=== PATIENT | female | born 1935 | race Caucasian/White ===

== ENCOUNTER 2016-12-18 14:06 | Emergency (ER) | payer MEDICARE, MEDICAID ==
[2016-12-18 14:06] VITALS: BMI 23.0
[2016-12-18 14:21] VITALS: TEMP 98.1
[2016-12-18] MEDS ORDERED: Morphine 2 mg/ml ISec IVP STA (14:46)
[2016-12-18 14:54] LABS: ADD MANUAL DIFF? NO
[2016-12-18 14:58] LABS: BASO # 0.02 K/mm3 (0.0-2.0); BASO % 0.2 % (0.0-3.0); EOS # 0.1 (0.0-0.7); EOS % 0.8 % (1.5-5.0); GRAN # 9.41 (1.4-6.5); GRAN % 79.5 % (50.0-68.0); HEMATOCRIT 35.9 % (36.0-48.0); LYMPH # 1.6 (1.2-3.4); LYMPH % 13.3 % (22.0-35.0); MEAN CELL VOLUME 89.5 fL (80.0-105.0); MEAN CORPUSCULAR HEMOGLOBIN 30.7 pg (25.0-35.0); MEAN CORPUSCULAR HGB CONC 34.3 g/dl (31.0-37.0); MEAN PLATELET VOLUME 9.7 fl (7.0-11.0); MONO # 0.7 (0.1-0.6); MONO % 6.2 % (1.0-6.0); PLATELET COUNT 306 10^3/uL (120.0-450.0); RED CELL DISTRIBUTION WIDTH 12.7 % (11.5-14.5); WHITE BLOOD COUNT 11.8 10^3/ul (4.5-11.0)
[2016-12-18 15:10] LABS: ALKALINE PHOSPHATASE 145 U/L (38-133); ALT/SGPT 35 U/L (7-56); AST/SGOT 40 U/L (15-39); BILIRUBIN,TOTAL 0.7 mg/dL (0.2-1.3); BLOOD UREA NITROGEN 15 mg/dL (7-21); CALCIUM 9.2 mg/dL (8.4-10.5); CARBON DIOXIDE 29 mmol/L (21-33); CHLORIDE 98 mmol/L (98-107); GFR AFRICAN-AMERICAN 48; GLUCOSE,RANDOM 202 mg/dL (70-110); MAGNESIUM 1.9 mg/dL (1.7-2.2); PHOSPHOROUS 3.8 mg/dL (2.5-4.5); SODIUM 137 mmol/L (132-148); TOTAL PROTEIN 7.5 g/dL (5.8-8.3)
--- NOTE | 2016-12-18 15:12 | ED PDOC ---
Arrival/HPI - General Chief Complaint: Dizziness/Lightheaded Time Seen by Provider: 12/18/16 14:27 Historian: Patient - History of Present Illness Narrative History of Present Illness (Text): 12/18/16 4:29 A 81 year old female, whose past medical history includes hypertension, hyperlipidemia, chronic cervical spine pain, and peripheral vascular disease, who presents to the emergency department with multiple complaints. Patient complains of lower back pain. She states the lower back pain is new and started yesterday morning. She notes the pain radiates down to the bilateral lower extremities to the tip of the feet. She notes a tingling sensation to the feet, but denies any numbness, change in ability to walk, or saddle anesthesia. Patient also complains of chronic cervical spine pain. She states she took Tramadol for the pain this morning. Patient also notes since this morning she has been experiencing lightheadedness and getting this aura tingling sensation in the mouth. She notes for the past week she has had a sore throat and intermittent congestion. Patient denies any fever, shortness of breath, chest pain, change in PO intake, rectal bleeding or other complaints at this time. PMD: Dr. Bob Time/Duration: Other (24 hours; 8-10 hours; 1 week; chronic) Symptom Onset: Other Symptom Course: Unchanged, Intermittent Quality: Other Activities at Onset: Rest Context: Home Past Medical History - Provider Review Nursing Documentation Reviewed: Yes - Infectious Disease Hx of Infectious Diseases: None - Tetanus Immunization Tetanus Immunization: Unknown - Reproductive Menopause: Yes - Cardiac Hx Hypertension: Yes - Pulmonary Hx Respiratory Disorders: No Hx Chronic Obstructive Pulmonary Disease (COPD): No - Neurological Hx Transient Ischemic Attacks (TIA): No - HEENT Hx HEENT Disorder: Yes Hx Blind: No Hx Cataracts: Yes (Bilateral cataract removal) Hx Deafness: No Hx Difficulty Chewing: No Hx Epistaxis: No Hx Glaucoma: No Hx Macular Degeneration: No - Renal Hx Renal Disorder: No Hx Renal Failure: No - Endocrine/Metabolic Hx Diabetes Mellitus Type 1: No Hx Diabetes Mellitus Type 2: Yes - Hematological/Oncological Hx Blood Disorders: No Hx AIDS: No Hx Anemia: No Hx Cancer: No Hx Chemotherapy: No Hx Cirrhosis: No Hx Hemophilia: No Hx Hepatitis A: No Hx Hepatitis B: No Hx Hepatitis C: No Hx Metastasis: No Hx Shingles: No Hx Sickle Cell Disease: No Hx Unexplained Bleeding: No - Integumentary Hx Dermatological Disorder: No Hx Basal Cell Carcinoma: No Hx Eczema: No Hx Melanoma: No Hx Psoriasis: No Hx Squamous Cell Carcinoma: No - Musculoskeletal/Rheumatological Hx Falls: No - Gastrointestinal Hx Gastrointestinal Disorders: Yes Hx Colostomy: No Hx Crohn's Disease: No Hx Diverticulitis: No Hx Gall Bladder Disease: No Hx Gastroesophageal Reflux: Yes Hx Gastrointestinal Ulcer: No Hx Ileostomy: No Hx Liver Failure: No Hx Pancreatitis: No HX Swallowing Problems: No - Genitourinary/Gynecological Hx Genitourinary Disorders: Yes (hysterectomy) Hx Hematuria: No Hx Incontinence: No Hx Prostate Problems: No Hx Sexually Transmitted Diseases: No Hx Urinary Tract Infection: No - Psychiatric Hx Psychophysiologic Disorder: No Hx Anxiety: No Hx Bipolar Disorder: No Hx Depression: No Hx Emotional Abuse: No Hx Hallucinations: No Hx Panic Disorder: No Hx Post Traumatic Stress Disorder: No Hx Psychosis: No Hx Physical Abuse: No Hx Schizophrenia: No Hx Sexual Abuse: No Hx Substance Use: No - Surgical History Hx Amputation: No Hx Appendectomy: No Hx Cardiac Catheterization: No Hx Cholecystectomy: No Hx Coronary Stent: No Hx Gastric Bypass Surgery: No Hx Hysterectomy: Yes Hx Joint Replacement: No Hx Kidney Transplant: No Hx Liver Transplant: No Hx Mastectomy: No Hx Musculoskeletal Surgery: Yes Hx Open Heart Surgery: No Hx Orthopedic Surgery: Yes Hx Splenectomy: No Hx Valve Replacement: No - Anesthesia Hx Anesthesia: Yes Hx Anesthesia Reactions: No Hx Malignant Hyperthermia: No - Suicidal Assessment Feels Threatened In Home Enviroment: No Family/Social History - Physician Review Nursing Documentation Reviewed: Yes Family/Social History: Unknown Family HX Smoking Status: Never Smoked Hx Alcohol Use: No Hx Substance Use: No Hx Substance Use Treatment: No Allergies/Home Meds Allergies/Adverse Reactions: Allergies No Known Allergies Allergy (Verified 05/19/16 11:30) Home Medications: Home Meds Medication Instructions Recorded Confirmed Insulin Glargine, Recombina 20 units SC ACB 09/30/13 12/18/16 [Lantus] Insulin Lispro [humALOG] 10 units SC TID 09/30/13 12/18/16 Aspirin [Ecotrin] 325 mg PO DAILY 12/18/16 12/18/16 Carvedilol [Coreg] 3.125 mg PO BID 12/18/16 12/18/16 Insulin Glargine, Recombina 12 unit SC HS 12/18/16 12/18/16 [Lantus] MetFORMIN [glucOPHAGE] 0 mg PO 12/18/16 Pantoprazole Sodium [Protonix] 40 mg PO DAILY 12/18/16 12/18/16 Simvastatin [Zocor] 20 mg PO DAILY 12/18/16 12/18/16 amLODIPine [Norvasc] 5 mg PO DAILY 12/18/16 12/18/16 traMADol [Ultram] 50 mg PO TID 12/18/16 12/18/16 Review of Systems - Physician Review All systems were reviewed & negative as marked: Yes - Review of Systems Constitutional: absent: Fevers ENT: Sore Throat, Sinus Congestion Respiratory: absent: SOB Cardiovascular: absent: Chest Pain Gastrointestinal: absent: Appetite Changes, Hematochezia Musculoskeletal: Back Pain (radiating down the bilateral lower extremities), Neck Pain Neurological: Other (tingling sensation to the feet and in mouth; lightheadedness; no numbness; no gait change; no saddle anesthesia) Physical Exam Vital Signs Reviewed: Yes Vital Signs Temp Pulse Resp BP Pulse Ox 12/18/16 17:36 72 18 133/60 97 12/18/16 15:44 74 20 134/63 97 12/18/16 14:18 98.1 F 72 18 154/58 H 98 Temperature: Afebrile Blood Pressure: Hypertensive Pulse: Regular Respiratory Rate: Normal Appearance: Positive for: Well-Appearing, Non-Toxic, Comfortable Pain Distress: None Mental Status: Positive for: Alert and Oriented X 3 - Systems Exam Head: Present: Atraumatic, Normocephalic Pupils: Present: PERRL Extroacular Muscles: Present: EOMI Conjunctiva: Present: Normal Mouth: Present: Moist Mucous Membranes Neck: Present: Normal Range of Motion, Paraspinal Tenderness Respiratory/Chest: Present: Clear to Auscultation, Good Air Exchange. No: Respiratory Distress, Accessory Muscle Use Cardiovascular: Present: Regular Rate and Rhythm, Normal S1, S2. No: Murmurs Abdomen: Present: Normal Bowel Sounds. No: Tenderness, Distention, Peritoneal Signs Back: Present: Paraspinal Tenderness, Other (full range of motion). No: Pain with Leg Raise Upper Extremity: Present: Normal Inspection. No: Cyanosis, Edema Lower Extremity: Present: Normal Inspection, NORMAL PULSES, Neurovascularly Intact. No: Edema, CALF TENDERNESS Neurological: Present: GCS=15, CN II-XII Intact, Speech Normal, Motor Func Grossly Intact, Normal Sensory Function Skin: Present: Warm, Dry, Normal Color. No: Rashes Psychiatric: Present: Alert, Oriented x 3, Normal Insight, Normal Concentration Medical Decision Making ED Course and Treatment: 12/18/16 14:29 Impression: A 81 year old female with chronic neck pain, new onset back pain, lightheadedness, sore throat and congestion. Differential Diagnosis include but are not limited to: spinal stenosis vs. herniated disc vs. back spasm vs. URI vs. Pneumonia vs. dehydration vs. electrolyte imbalance vs. ACS Plan: -- EKG -- Cervical Spine CT -- Head CT -- Lumbar Spine CT -- Chest X-ray -- Labs -- Urinalysis -- Morphine -- Reassess and disposition Prior Visits: Notes and results from previous visits were reviewed. The patient last presented to the emergency department on 06/21/16 for evaluation of intermittent chest pressure. Progress Notes: EKG: Ordered, reviewed, and independently interpreted the EKG. Rate : 71 BPM Rhythm : NSR Interpretation : PAC's otherwise normal 12/18/16 15:[address]: Creator : Kristian Flanagan MD COMPARISON: None available. FINDINGS: HEMORRHAGE: No intracranial hemorrhage. BRAIN: No mass effect or edema. Mild diffuse age-appropriate cerebral atrophy. 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 Mild chronic periventricular white matter ischemic change. VENTRICLES: Unremarkable. No hydrocephalus. CALVARIUM: Unremarkable. PARANASAL SINUSES: Unremarkable as visualized. No significant inflammatory changes. MASTOID AIR CELLS: Nonspecific sclerosis of right mastoid air cells. No evidence of mastoiditis. OTHER FINDINGS: None. IMPRESSION: No intracranial mass, hemorrhage or evidence of acute infarct. Age related atrophy and chronic microvascular white matter ischemic change. 12/18/16 15:[address]: Creator : Edwin Card MD COMPARISON: None available. FINDINGS: VERTEBRAE: Hyper trophic proliferative/degenerative changes C1-C2 relationship. Alternatively this tube ease the sequela prior/remote trauma. . The dens is also affected. DISCS/SPINAL CANAL/NEURAL FORAMINA: Multilevel degenerative changes C2-3, C3-4, C4-5, C5-6. The findings are infarcts related to proliferative hypertrophic central bar formation at these levels. There is no evidence of canal stenosis. PARASPINAL SOFT TISSUES: Unremarkable. OTHER FINDINGS: Linear scarring right apex. IMPRESSION: Multilevel degenerative changes upper, mid cervical spine. Proliferative hypertrophic bar formation primarily central without evidence of canal stenosis. Osteoarthritic/posttraumatic changes C1-C2. There is no evidence of atlantoaxial subluxation or other acute pathologic process. 12/18/16 15:45 Chest X-ray: Creator : Kristian Flanagan MD COMPARISON: 05/19/2016 FINDINGS: LUNGS: No active pulmonary disease. PLEURA: No significant pleural effusion identified, no pneumothorax apparent. CARDIOVASCULAR: Normal OSSEOUS STRUCTURES: Old healed left clavicle fracture VISUALIZED UPPER ABDOMEN: Normal. OTHER FINDINGS: None. IMPRESSION: No active disease. 12/18/16 16:[address]: Creator : Kristian Flanagan MD COMPARISON: None. FINDINGS: VERTEBRAE: The vertebral bodies are maintained in height. The transverse processes and posterior elements are intact. DISCS/SPINAL CANAL/NEURAL FORAMINA: L1-2: Unremarkable. L2-3: Unremarkable L3-4: Minimal disc bulge. No focal disc herniation. No neural foraminal stenosis. Mild central spinal stenosis. . There is ligamentum flavum hypertrophy with calcification. L4-5: Grade 1 anterolisthesis. No spondylolysis. Mild diffuse disc bulge. No focal herniation. Mild left and moderate right neural foraminal stenosis. Bilateral ligamentum flavum hypertrophy with calcification. Moderate central spinal stenosis. Bilateral degenerative facet arthropathy. L5-S1: Mild diffuse disc bulge. No focal herniation. Bilateral degenerative facet arthropathy. No neural foraminal stenosis. No central spinal stenosis. PARASPINAL SOFT TISSUES: Unremarkable. OTHER FINDINGS: None. IMPRESSION: Multilevel disc bulge without focal disc herniation. Multilevel degenerative facet arthropathy and ligamentum flavum hypertrophy. . Mild central spinal stenosis L3-4 and moderate central spinal stenosis L4-5. Bilateral neural foraminal stenosis at L4-5, right greater than left. No osseous fracture. Grade 1 anterolisthesis at L4-5. 12/18/16 18:28 Patient felt completely better after IVF and pain medication in the ED. No longer has symptoms. Potassium was noted to be elevated. She was treated with kayexalate. Stated at 5.6-5.7. She has good renal function. She has good follow up and will make sure to take medications as prescribed and follow up with Dr. Bob in 2-3days. Advised to return to the ED if symptoms worsen or any other concern. - Lab Interpretations Lab Results: 12/18/16 14:50 12/18/16 17:35 Lab Results 12/18/16 17:35: Potassium 5.7 H* 12/18/16 15:08: Urine Color Yellow, Urine Appearance Clear, Urine pH 7.0, Ur Specific [place] 1.010, Urine Protein Negative, Urine Glucose (UA) Negative, Urine Ketones Trace H, Urine Blood Negative, Urine Nitrate Negative, Urine Bilirubin Negative, Urine Urobilinogen 0.2, Ur Leukocyte Esterase Small H, Urine RBC Negative, Urine WBC 1 - 3, Ur Epithelial Cells 3 - 4 12/18/16 14:50: WBC 11.8 H, RBC 4.01, Hgb 12.3, Hct 35.9 L, MCV 89.5, MCH 30.7, MCHC 34.3, RDW 12.7, Plt Count 306, MPV 9.7, Gran % 79.5 H, Lymph % (Auto) 13.3 L, [place] % (Auto) 6.2 H, Eos % (Auto) 0.8 L, Baso % (Auto) 0.2, Gran # 9.41 H, Lymph # 1.6, [place] # 0.7 H, Eos # 0.1, Baso # 0.02, Sodium 137, Potassium 5.6 H* , Chloride 98, Carbon Dioxide 29, Anion Gap 16, BUN 15, Creatinine 1.3, Est GFR ( Amer) 48, Est GFR (Non-Af Amer) 39, Random Glucose 202 H, Calcium 9.2, Phosphorus 3.8, Magnesium 1.9, Total Bilirubin 0.7, AST 40 H, ALT 35, Alkaline Phosphatase 145 H, Lactate Dehydrogenase 579, Total Creatine Kinase 73, Troponin I < 0.01, Total Protein 7.5, Albumin 3.8, Globulin 3.7, Albumin/ Globulin Ratio 1.0 L 12/18/16 14:28: POC Glucose (mg/dL) 197 H I have reviewed the lab results: Yes - RAD Interpretation Radiology Orders: 12/18/16 14:42 CERVICAL SPINE W/O CONTRAST [CT] Stat HEAD W/O CONTRAST [CT] Stat LUMBAR SPINE W/O CONTRAST [CT] Stat 12/18/16 14:45 CHEST PORTABLE [RAD] Stat - Medication Orders Current Medication Orders: Discontinued Medications Sodium Chloride (Sodium Chloride 0.9%) 500 mls @ 999 mls/hr IV .Q31M STA Stop: 12/18/16 16:20 Last Admin: 12/18/16 16:15 Dose: 999 MLS/HR eMAR Start Stop Document 12/18/16 16:15 [facility] (Rec: 12/18/16 16:15 [place] [id number]) Intravenous Solution Start Date 12/18/16 Start Time 16:15 End Date 12/18/16 End time 16:45 Total Infusion Time 30 Morphine Sulfate (Morphine) 2 mg IVP STAT STA Stop: 12/18/16 14:47 Last Admin: 12/18/16 15:41 Dose: 2 MG MAR Pain Assessment Document 12/18/16 15:41 [facility] (Rec: 12/18/16 15:41 [place] [id number]) Pain Reassessment Is this a pain reassessment? No IVP Administration Document 12/18/16 15:41 [facility] (Rec: 12/18/16 15:41 [place] [id number]) Charges for Administration # of IVP Administrations 1 Sodium Polystyrene Sulfonate (Kayexalate Oral Susp) 30 gm PO STAT STA Stop: 12/18/16 15:16 Last Admin: 12/18/16 15:51 Dose: 30 GM - Scribe Statement The provider has reviewed the documentation as recorded by the Lavern Calderón Provider Scribe Attestation: All medical record entries made by the Lavern were at my direction and personally dictated by me. I have reviewed the chart and agree that the record accurately reflects my personal performance of the history, physical exam, medical decision making, and the department course for this patient. I have also personally directed, reviewed, and agree with the discharge instructions and disposition. Disposition/Present on Arrival - Present on Arrival Any Indicators Present on Arrival: Yes History of DVT/PE: No History of Uncontrolled Diabetes: Yes Urinary Catheter: No History of Decub. Ulcer: No History Surgical Site Infection Following: None - Disposition Have Diagnosis and Disposition been Completed?: Yes Diagnosis: Dizziness, Back pain, Neck pain, Hyperkalemia Disposition: HOME/ ROUTINE Disposition Time: 18:31 Patient Plan: Discharge Patient Problems: Current Active Problems Problem Status Diagnosed Back pain Acute Dizziness Acute Hyperkalemia Acute Neck pain Acute Condition: IMPROVED Discharge Instructions (ExitCare): Hyperkalemia (DC), Acute Low Back Pain (DC) , Dizziness (ED) Additional Instructions: Ms Mobley, thank you for letting us take care of you today. Your provider was Dr. Salazar. You were treated for Dizziness, Hyperkalemia, Low back pain, Neck pain. The emergency medical care you received today was directed at your acute symptoms. If you were prescribed any medication, please fill it and take as directed. It may take several days for your symptoms to resolve. Return to the Emergency Department if your symptoms worsen, do not improve, or if you have any other problems. Please contact your doctor or call one of the physicians/clinics you have been referred to that are listed on the Patient Visit Information form that is included in your discharge packet. Bring any paperwork you were given at discharge with you along with any medications you are taking to your follow up visit. Our treatment cannot replace ongoing medical care by a primary care provider (PCP) outside of the emergency department. Thank you for allowing the [facility] team to be part of your care today. If you had an X-Ray or CT scan: A Radiologist will review the ED reading if any change in treatment is needed we will contact you. If you had a blood, urine, or wound culture: It will take several days for the results, if any change in treatment is needed we will contact you. If you had an STI test: It will take 48 hours for the results. Please call after 1 week if you have not heard back. Prescriptions: Sodium Polystyrene Sulfonate [kayeXALATE] 15 gm PO BID #1 Referrals: Hilda Bob DO [Primary Care Provider] - Follow up with primary
[2016-12-18 15:14] LABS: POTASSIUM 5.6 mmol/L (3.6-5.0)
[2016-12-18] MEDS ORDERED: Sod Polystyrene Sulf 15 gm/60 ml Oral Susp PO STA (15:15)
--- NOTE | 2016-12-18 15:24 | CT ---
PROCEDURE: CT HEAD WITHOUT CONTRAST. HISTORY: dizziness COMPARISON: None available. TECHNIQUE: Axial computed tomography images were obtained through the head/brain without intravenous contrast. Radiation dose: Total exam DLP = 629.06 mGy-cm. This CT exam was performed using one or more of the following dose reduction techniques: Automated exposure control, adjustment of the mA and/or kV according to patient size, and/or use of iterative reconstruction technique. FINDINGS: HEMORRHAGE: No intracranial hemorrhage. BRAIN: No mass effect or edema. Mild diffuse age-appropriate cerebral atrophy. 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 Mild chronic periventricular white matter ischemic change. VENTRICLES: Unremarkable. No hydrocephalus. CALVARIUM: Unremarkable. PARANASAL SINUSES: Unremarkable as visualized. No significant inflammatory changes. MASTOID AIR CELLS: Nonspecific sclerosis of right mastoid air cells. No evidence of mastoiditis. OTHER FINDINGS: None. IMPRESSION: No intracranial mass, hemorrhage or evidence of acute infarct. Age related atrophy and chronic microvascular white matter ischemic change.
[2016-12-18 15:30] LABS: TROPONIN I < 0.01 ng/mL
--- NOTE | 2016-12-18 15:38 | CT ---
PROCEDURE: CT Cervical Spine without contrast HISTORY: Dizzy necks and neck pain. No antecedent history of trauma provided. COMPARISON: None available. TECHNIQUE: Axial computed tomography images were obtained of the cervical spine without the use of intravenous contrast. Coronal and sagittal reformatted images were created and reviewed. Radiation dose: Total exam DLP = 394.76 mGy-cm. This CT exam was performed using one or more of the following dose reduction techniques: Automated exposure control, adjustment of the mA and/or kV according to patient size, and/or use of iterative reconstruction technique. FINDINGS: VERTEBRAE: Hyper trophic proliferative/degenerative changes C1-C2 relationship. Alternatively this tube ease the sequela prior/remote trauma. . The dens is also affected. DISCS/SPINAL CANAL/NEURAL FORAMINA: Multilevel degenerative changes C2-3, C3-4, C4-5, C5-6. The findings are infarcts related to proliferative hypertrophic central bar formation at these levels. There is no evidence of canal stenosis. PARASPINAL SOFT TISSUES: Unremarkable. OTHER FINDINGS: Linear scarring right apex. IMPRESSION: Multilevel degenerative changes upper, mid cervical spine. Proliferative hypertrophic bar formation primarily central without evidence of canal stenosis. Osteoarthritic/posttraumatic changes C1-C2. There is no evidence of atlantoaxial subluxation or other acute pathologic process.
--- NOTE | 2016-12-18 15:46 | RAD ---
HISTORY: cough r/o pna COMPARISON: 05/19/2016 FINDINGS: LUNGS: No active pulmonary disease. PLEURA: No significant pleural effusion identified, no pneumothorax apparent. CARDIOVASCULAR: Normal. OSSEOUS STRUCTURES: Old healed left clavicle fracture VISUALIZED UPPER ABDOMEN: Normal. OTHER FINDINGS: None. IMPRESSION: No active disease.
[2016-12-18 15:50] VITALS: O2SAT 97
[2016-12-18] MEDS ORDERED: Sodium Chloride 0.9% 500 ML IV STA (15:50)
[2016-12-18 15:55] LABS: URINE BILIRUBIN NEGATIVE (NEGATIVE); URINE BLOOD NEGATIVE (NEGATIVE); URINE GLUCOSE (UA) NEGATIVE (NEGATIVE); URINE KETONE TRACE mg/dL (NEGATIVE); URINE LEUKOCYTE ESTERASE SMALL Leu/uL (NEGATIVE); URINE PROTEIN NEGATIVE mg/dL (<30 mg/dL); URINE UROBILINOGEN 0.2 E.U./dL (<1 E.U./dL)
[2016-12-18 15:57] LABS: URINE APPEARANCE CLEAR (CLEAR); URINE COLOR YELLOW (YELLOW)
[2016-12-18 16:08] LABS: URINE RBC NEGATIVE /hpf (0-2)
--- NOTE | 2016-12-18 16:15 | CT ---
PROCEDURE: CT Lumbar Spine without contrast HISTORY: pain r/o stenosis vs fx COMPARISON: None. TECHNIQUE: Axial computed tomography images were obtained of the lumbar spine without the use of intravenous contrast. Coronal and sagittal reformatted images were created and reviewed. Radiation dose: Total exam DLP = 260.06 mGy-cm. This CT exam was performed using one or more of the following dose reduction techniques: Automated exposure control, adjustment of the mA and/or kV according to patient size, and/or use of iterative reconstruction technique. FINDINGS: VERTEBRAE: The vertebral bodies are maintained in height. The transverse processes and posterior elements are intact. DISCS/SPINAL CANAL/NEURAL FORAMINA: L1-2: Unremarkable. L2-3: Unremarkable. L3-4: Minimal disc bulge. No focal disc herniation. No neural foraminal stenosis. Mild central spinal stenosis. . There is ligamentum flavum hypertrophy with calcification. L4-5: Grade 1 anterolisthesis. No spondylolysis. Mild diffuse disc bulge. No focal herniation. Mild left and moderate right neural foraminal stenosis. Bilateral ligamentum flavum hypertrophy with calcification. Moderate central spinal stenosis. Bilateral degenerative facet arthropathy. L5-S1: Mild diffuse disc bulge. No focal herniation. Bilateral degenerative facet arthropathy. No neural foraminal stenosis. No central spinal stenosis. PARASPINAL SOFT TISSUES: Unremarkable. OTHER FINDINGS: None. IMPRESSION: Multilevel disc bulge without focal disc herniation. Multilevel degenerative facet arthropathy and ligamentum flavum hypertrophy. . Mild central spinal stenosis L3-4 and moderate central spinal stenosis L4-5. Bilateral neural foraminal stenosis at L4-5, right greater than left. No osseous fracture. Grade 1 anterolisthesis at L4-5.
[2016-12-18 17:37] VITALS: BP 133/60; PULSE 72; RESP 18
--- NOTE | 2016-12-18 18:11 | CARD ---
APPROVED REPORT EKG Measurement Heart [id number] <Conclusion> Sinus rhythm with premature supraventricular complexes Septal infarct, age undetermined Abnormal ECG
== END 2016-12-18 18:40 | disposition home or self-care (01) ==
LOC: ED 14:06
DX: R42 Dizziness and giddiness (principal); M54.9 Dorsalgia, unspecified; M54.2 Cervicalgia; E87.5 Hyperkalemia; I10 Essential (primary) hypertension; E11.9 Type 2 diabetes mellitus without complications; K21.9 Gastro-esophageal reflux disease without esophagitis
CPT/HCPCS: 70450; 71010; 72125; 72131; 80053; 81001; 82550; 82948; 83615; 83735; 84100; 84132; 84484; 85025; 87086; 93005; 96374; 99285; J2270; J7040

== ENCOUNTER 2016-12-25 21:25 | Inpatient (IN) | payer MEDICARE, MEDICAID ==
[2016-12-25 21:43] VITALS: BMI 25.4
[2016-12-25] MEDS ORDERED: Sodium Chloride 0.9% 1,000 ML IV STA (21:50)
[2016-12-25] MEDS ORDERED: Pantoprazole 40 MG in Sodium Chloride 0.9% 100 ML IV STA (21:50)
[2016-12-25] MEDS ORDERED: Morphine 2 mg/ml ISec IVP STA (21:50)
--- NOTE | 2016-12-25 21:55 | ED PDOC ---
Arrival/HPI - General Chief Complaint: Abdominal Pain Time Seen by Provider: 12/25/16 21:30 Historian: Patient, Family (Son) - History of Present Illness Narrative History of Present Illness (Text): 12/25/16 21:51 Veronica Olea is a 81 year old female, whose past medical history includes hypertension, hyperlipidemia, and peripheral vascular disease, presents to the emergency department complaining of diffuse abdominal pain since today morning. Patient's son, who accompanied the patient, states that she has had diarrhea for past 2 days. Denies any vomiting. Denies fever, chills, headache, dizziness , chest pain, difficulty breathing, urinary symptoms or any other complaints at this time. PMD:Dr. Bob Time/Duration: Other (today morning ) Symptom Onset: Gradual Symptom Course: Unchanged Severity Level: Mild Activities at Onset: Light Context: Home Past Medical History - Provider Review Nursing Documentation Reviewed: Yes - Infectious Disease Hx of Infectious Diseases: None - Tetanus Immunization Tetanus Immunization: Unknown - Reproductive Menopause: Yes - Cardiac Hx Hypertension: Yes - Pulmonary Hx Respiratory Disorders: No Hx Chronic Obstructive Pulmonary Disease (COPD): No - Neurological Hx Transient Ischemic Attacks (TIA): No - HEENT Hx HEENT Disorder: Yes Hx Blind: No Hx Cataracts: Yes (Bilateral cataract removal) Hx Deafness: No Hx Difficulty Chewing: No Hx Epistaxis: No Hx Glaucoma: No Hx Macular Degeneration: No - Renal Hx Renal Disorder: No Hx Renal Failure: No - Endocrine/Metabolic Hx Diabetes Mellitus Type 1: No Hx Diabetes Mellitus Type 2: Yes - Hematological/Oncological Hx Blood Disorders: No Hx AIDS: No Hx Anemia: No Hx Cancer: No Hx Chemotherapy: No Hx Cirrhosis: No Hx Hemophilia: No Hx Hepatitis A: No Hx Hepatitis B: No Hx Hepatitis C: No Hx Metastasis: No Hx Shingles: No Hx Sickle Cell Disease: No Hx Unexplained Bleeding: No - Integumentary Hx Dermatological Disorder: No Hx Basal Cell Carcinoma: No Hx Eczema: No Hx Melanoma: No Hx Psoriasis: No Hx Squamous Cell Carcinoma: No - Musculoskeletal/Rheumatological Hx Falls: No - Gastrointestinal Hx Gastrointestinal Disorders: Yes Hx Colostomy: No Hx Crohn's Disease: No Hx Diverticulitis: No Hx Gall Bladder Disease: No Hx Gastroesophageal Reflux: Yes Hx Gastrointestinal Ulcer: No Hx Ileostomy: No Hx Liver Failure: No Hx Pancreatitis: No HX Swallowing Problems: No - Genitourinary/Gynecological Hx Genitourinary Disorders: Yes (hysterectomy) Hx Hematuria: No Hx Incontinence: No Hx Prostate Problems: No Hx Sexually Transmitted Diseases: No Hx Urinary Tract Infection: No - Psychiatric Hx Psychophysiologic Disorder: No Hx Anxiety: No Hx Bipolar Disorder: No Hx Depression: No Hx Emotional Abuse: No Hx Hallucinations: No Hx Panic Disorder: No Hx Post Traumatic Stress Disorder: No Hx Psychosis: No Hx Physical Abuse: No Hx Schizophrenia: No Hx Sexual Abuse: No Hx Substance Use: No - Surgical History Hx Amputation: No Hx Appendectomy: No Hx Cardiac Catheterization: No Hx Cholecystectomy: No Hx Coronary Stent: No Hx Gastric Bypass Surgery: No Hx Hysterectomy: Yes Hx Joint Replacement: No Hx Kidney Transplant: No Hx Liver Transplant: No Hx Mastectomy: No Hx Musculoskeletal Surgery: Yes Hx Open Heart Surgery: No Hx Orthopedic Surgery: Yes Hx Splenectomy: No Hx Valve Replacement: No Other/Comment: Stents - Anesthesia Hx Anesthesia: Yes Hx Anesthesia Reactions: No Hx Malignant Hyperthermia: No - Suicidal Assessment Feels Threatened In Home Enviroment: No Family/Social History - Physician Review Nursing Documentation Reviewed: Yes Family/Social History: No Known Family HX Smoking Status: Never Smoked Hx Alcohol Use: No Hx Substance Use: No Hx Substance Use Treatment: No Allergies/Home Meds Allergies/Adverse Reactions: Allergies No Known Allergies Allergy (Verified 12/25/16 21:40) Home Medications: Home Meds Medication Instructions Recorded Confirmed Insulin Glargine, Recombina 20 units SC ACB 09/30/13 12/18/16 [Lantus] Insulin Lispro [humALOG] 10 units SC TID 09/30/13 12/18/16 Aspirin [Ecotrin] 325 mg PO DAILY 12/18/16 12/18/16 Carvedilol [Coreg] 3.125 mg PO BID 12/18/16 12/18/16 Insulin Glargine, Recombina 12 unit SC HS 12/18/16 12/18/16 [Lantus] MetFORMIN [glucOPHAGE] 0 mg PO 12/18/16 Pantoprazole Sodium [Protonix] 40 mg PO DAILY 12/18/16 12/18/16 Simvastatin [Zocor] 20 mg PO DAILY 12/18/16 12/18/16 amLODIPine [Norvasc] 5 mg PO DAILY 12/18/16 12/18/16 traMADol [Ultram] 50 mg PO TID 12/18/16 12/18/16 Review of Systems - Physician Review All systems were reviewed & negative as marked: Yes - Review of Systems Constitutional: Normal. absent: Fatigue, Fevers Respiratory: Normal. absent: SOB, Cough Cardiovascular: Normal. absent: Chest Pain Gastrointestinal: Abdominal Pain, Diarrhea. absent: Nausea, Vomiting Neurological: Normal. absent: Headache, Dizziness Endocrine: Normal Psychiatric: Normal Physical Exam Vital Signs Reviewed: Yes Vital Signs Temp Pulse Resp BP Pulse Ox 12/26/16 03:17 75 18 157/67 H 98 12/26/16 00:26 71 18 148/88 100 12/25/16 21:35 97.9 F 60 14 153/67 H 99 Temperature: Afebrile Blood Pressure: Normal Pulse: Regular Respiratory Rate: Normal Appearance: Positive for: Well-Appearing, Non-Toxic, Comfortable Pain Distress: None Mental Status: Positive for: Alert and Oriented X 3 - Systems Exam Head: Present: Atraumatic, Normocephalic Pupils: Present: PERRL Conjunctiva: Present: Normal Respiratory/Chest: Present: Clear to Auscultation, Good Air Exchange. No: Respiratory Distress, Accessory Muscle Use Cardiovascular: Present: Regular Rate and Rhythm, Normal S1, S2. No: Murmurs Abdomen: Present: Normal Bowel Sounds. No: Tenderness, Distention, Peritoneal Signs, Rebound, Guarding Upper Extremity: Present: Normal Inspection. No: Cyanosis, Edema Lower Extremity: Present: Normal Inspection. No: Edema Neurological: Present: GCS=15, CN II-XII Intact, Speech Normal Skin: Present: Warm, Dry, Normal Color. No: Rashes Psychiatric: Present: Alert, Oriented x 3, Normal Insight, Normal Concentration Medical Decision Making ED Course and Treatment: 12/25/16 21:56 Impression: A 81 year old female who presents to the emergency department complaining of abdominal pain since today morning. Plan: -- EKG -- CT abdomen pelvis -- Labs, cardiac enzymes -- Blood culture -- Urine culture -- Urinalysis Progress Notes: 12/25/16 21:58 EKG reviewed by me: Sinus bradycardia @ 58 bpm. Normal axis. Normal interval. 12/26/16 00:45 CT abdomen pelvis reviewed: IMPRESSION: Limited evaluation of the bowel without enteric contrast. Small hiatal hernia. Fatty focus in the small bowel in the upper abdomen, axial image 61. Pancreatic atrophy. Status post cholecystectomy. Notable atherosclerosis. Please note evaluation for underlying visceral lesions/abnormalities limited without intravenous contrast. Correlate clinically. Followup as warranted 12/26/16 00:49 Case discussed with who is aware and agrees with the plan to admit patient to Med/surg. Accepts patient under her service. 12/27/16 18:57 - Lab Interpretations Microbiology Results: Microbiology Results 12/26/16 01:05 Urine,Clean Catch Urine Culture - Final Gram Negative King 12/25/16 22:38 Blood-Venous Blood Culture - Preliminary NO GROWTH AFTER 24 HOURS 12/25/16 22:00 Blood-Venous Blood Culture - Preliminary NO GROWTH AFTER 24 HOURS Lab Results: 12/25/16 22:00 12/25/16 22:00 Lab Results 12/26/16 01:13: pO2 41, VBG pH 7.42, VBG pCO2 42.0, VBG HCO3 27.2, VBG Total CO2 28.5 H, VBG O2 Sat (Calc) 82.2 H, VBG Base Excess 2.4 H, VBG Potassium 3.9, Sodium 140.0, Chloride 109.0 H, Glucose 293 H, Lactate 1.3, FiO2 21.0, Venous Blood Potassium 3.9 12/26/16 01:05: Urine Color Yellow, Urine Appearance Slight-cloudy, Urine pH 7.5 , Ur Specific Clarinda 1.015, Urine Protein Negative, Urine Glucose (UA) >=1000, Urine Ketones Negative, Urine Blood Negative, Urine Nitrate Negative, Urine Bilirubin Negative, Urine Urobilinogen 0.2, Ur Leukocyte Esterase Trace H, Urine RBC 0 - 2, Urine WBC 1 - 3, Ur Epithelial Cells 0 - 2, Urine Bacteria Rare 12/25/16 22:00: WBC 6.6 D, RBC 4.05, Hgb 12.0, Hct 35.9 L, MCV 88.6, MCH 29.6, MCHC 33.4, RDW 12.7, Plt Count 339, MPV 9.6, Gran % 69.1 H, Lymph % (Auto) 24.6 , Fleming % (Auto) 5.2, Eos % (Auto) 0.8 L, Baso % (Auto) 0.3, Gran # 4.53, Lymph # 1.6, Fleming # 0.3, Eos # 0.1, Baso # 0.02, PT 10.8, INR 1.00, APTT 24.0, pO2 37 , VBG pH 7.39, VBG pCO2 46.0, VBG HCO3 27.8, VBG Total CO2 29.2 H, VBG O2 Sat ( Calc) 76.3 H, VBG Base Excess 2.2 H, VBG Potassium 4.9, Sodium 138.0, Chloride 104.0, Glucose 430 H*, Lactate 2.1, FiO2 21.0, Potassium 4.8, Carbon Dioxide 28 , Anion Gap 15, BUN 22 H, Creatinine 1.2, Est GFR ( Amer) 52, Est GFR ( Non-Af Amer) 43, Random Glucose 416 H* D, Calcium 9.4, Total Bilirubin 0.6, AST 44 H, ALT 43, Alkaline Phosphatase 124, Lactate Dehydrogenase 526, Total Creatine Kinase 58, Troponin I < 0.01, Total Protein 7.6, Albumin 3.9, Globulin 3.7, Albumin/Globulin Ratio 1.1, Amylase 50, Lipase 40, Venous Blood Potassium 4.9 I have reviewed the lab results: Yes - RAD Interpretation Narrative RAD Interpretations (Text): EXAM: CT Abdomen and Pelvis Without Intravenous Contrast FINDINGS: The unenhanced liver, spleen and adrenal glands demonstrate no acute abnormalities. Pancreatic atrophy. Status post cholecystectomy. No obstructing renal calculus or hydronephrosis. Notable atherosclerosis. Please note evaluation for underlying visceral lesions/abnormalities limited without intravenous contrast. Limited evaluation of the bowel without enteric contrast. Small hiatal hernia. The small and large bowel as visualized demonstrate no evidence of obstruction or clear focus of inflammation. Normalcaliber appendix. Fatty focus in the small bowel in the upper abdomen, axial image 61. No ascites. No free air. Degenerative changes. IMPRESSION: Limited evaluation of the bowel without enteric contrast. Small hiatal hernia. Fatty focus in the small bowel in the upper abdomen, axial image 61. Pancreatic atrophy. Status post cholecystectomy. Notable atherosclerosis. Please note evaluation for underlying visceral lesions/abnormalities limited without intravenous contrast. Correlate clinically. Followup as warranted Radiology Orders: 12/25/16 21:50 ABD & PELVIS W/O PO OR IV CONT [CT] Stat 12/26/16 12:37 ABDOMEN COMPLETE [US] Routine 12/26/16 12:38 ABDOMEN & PELVIS [ABD & PELVIS PO CONTRAST ONLY] [CT] Stat Supervisor [place]: Radiologist - EKG Interpretation Interpreted by ED Physician: Yes Type: 12 lead EKG - Medication Orders Current Medication Orders: Amlodipine Besylate (Norvasc) 5 mg PO DAILY [facility] Last Admin: 12/27/16 10:25 Dose: 5 MG Aspirin (Ecotrin) 325 mg PO DAILY [facility] Last Admin: 12/27/16 10:24 Dose: 325 MG Carvedilol (Coreg) 3.125 mg PO BID [facility] Last Admin: 12/27/16 17:09 Dose: 3.125 MG Metronidazole (Flagyl) 50 mls @ 100 mls/hr IV Q8 [facility] PRN Reason: Protocol Stop: 12/31/16 22:01 Last Admin: 12/27/16 14:20 Dose: 100 MLS/HR eMAR Start Stop Document 12/27/16 14:20 RADHA (Rec: 12/27/16 14:20 RADHA [id number]) Intravenous Solution Start Date 12/27/16 Start Time 14:20 Ceftriaxone Sodium (Rocephin 1 Gram Ivpb) 100 mls @ 100 mls/hr IVPB DAILY [facility] PRN Reason: Protocol Last Admin: 12/27/16 10:25 Dose: 100 MLS/HR eMAR Start Stop Document 12/27/16 10:25 RADHA (Rec: 12/27/16 10:26 RADHA [id number]) Intravenous Solution Start Date 12/27/16 Start Time 10:26 Insulin Human Regular (Humulin R High) 0 units SC ACHS [facility] PRN Reason: Protocol Last Admin: 12/27/16 17:10 Dose: 4 UNITS MAR Blood Glucose Document 12/27/16 17:10 RADHA (Rec: 12/27/16 17:10 RADHA [id number]) Blood Glucose Finger Stick Blood Glucose (70-120) 200 Subcutaneous Administrations Document 12/27/16 17:10 RADHA (Rec: 12/27/16 17:10 RADHA [id number]) Injection Site MAR Injection Site Left Arm Charges for Administration # of Subcutaneous Administrations 1 Pantoprazole Sodium (Protonix Ec Tab) 40 mg PO 0630 [facility] Discontinued Medications Barium Sulfate (Readi-Cat 2) Confirm Administered Dose 900 ml PO .STK-MED ONE Stop: 12/26/16 13:33 Sodium Chloride (Sodium Chloride 0.9%) 1,000 mls @ 100 mls/hr IV .Q10H STA Stop: 12/26/16 07:49 Last Admin: 12/25/16 22:13 Dose: 100 MLS/HR eMAR Start Stop Document 12/25/16 22:13 SB (Rec: 12/25/16 22:13 SB [id number]) Intravenous Solution Start Date 12/25/16 Start Time 22:13 End Date 12/25/16 Pantoprazole Sodium 40 mg/ (Sodium Chloride) 100 mls @ 400 mls/hr IV STAT STA Stop: 12/25/16 22:04 Last Admin: 12/25/16 22:37 Dose: 400 MLS/HR eMAR Start Stop Document 12/25/16 22:37 SB (Rec: 12/25/16 22:37 SB [facility] [id number]) Intravenous Solution Start Date 12/25/16 Start Time 22:37 End Date 12/25/16 Sodium Chloride (Sodium Chloride 0.9%) 1,000 mls @ 100 mls/hr IV .Q10H STA Stop: 12/26/16 11:09 Last Admin: 12/26/16 03:09 Dose: 100 MLS/HR eMAR Start Stop Document 12/26/16 03:09 SB (Rec: 12/26/16 03:09 SB [facility] [place]-[id number]) Intravenous Solution Start Date 12/26/16 Start Time 03:09 End Date 12/26/16 Potassium Chloride (Potassium Chloride 10 Meq/100 Ml) 100 mls @ 100 mls/hr IVPB Q2H [facility] Stop: 12/27/16 13:29 Last Admin: 12/27/16 14:20 Dose: 100 MLS/HR eMAR Start Stop Document 12/27/16 14:20 RADHA (Rec: 12/27/16 14:20 RADHA [id number]) Intravenous Solution Start Date 12/27/16 Start Time 14:20 Magnesium Sulfate/Dextrose (Magnesium Sulfate 1 Gm/100 Ml D5w) 100 mls @ 100 mls/hr IV ONCE ONE Stop: 12/27/16 11:15 Last Admin: 12/27/16 11:16 Dose: 100 MLS/HR eMAR Start Stop Document 12/27/16 11:16 RADHA (Rec: 12/27/16 11:16 RADHA [id number]) Intravenous Solution Start Date 12/27/16 Start Time 11:16 Insulin Human Regular (Humulin R) 8 units SC STAT STA Stop: 12/26/16 00:02 Last Admin: 12/26/16 00:33 Dose: 8 UNITS Subcutaneous Admin in ER Document 12/26/16 00:33 SB (Rec: 12/26/16 00:33 SB [facility] [id number]) Injection Site MAR Injection Site Right Arm Subcutaneous Administrations Document 12/26/16 00:33 SB (Rec: 12/26/16 00:33 SB [facility]-[id number]) Injection Site MAR Injection Site Right Arm Charges for Administration # of Subcutaneous Administrations 1 Insulin Human Regular (Humulin R Low) 0 units SC ACHS [facility] PRN Reason: Protocol Last Admin: 12/26/16 12:14 Dose: Not Given Non-Admin Reason: Blood Sugar Parameter MAR Blood Glucose Document 12/26/16 12:14 EP (Rec: 12/26/16 12:14 EP [id number]) Blood Glucose Finger Stick Blood Glucose (70-120) 141 Morphine Sulfate (Morphine) 2 mg IVP STAT STA Stop: 12/25/16 21:51 Last Admin: 12/25/16 22:13 Dose: 2 MG MAR Pain Assessment Document 12/25/16 22:13 SB (Rec: 12/25/16 22:13 [facility]-[id number]) Pain Reassessment Is this a pain reassessment? No Sleep Is patient sleeping during reassessment? Yes Pain Scale Used Pain Scale Used Numeric Location Pain Location Body Site Abdomen Description Intensity of Pain at present 7 IVP Administration Document 12/25/16 22:13 SB (Rec: 12/25/16 22:13 [facility]-[id number]) Charges for Administration # of IVP Administrations 1 Ondansetron HCl (Zofran Inj) 4 mg IVP STAT STA Stop: 12/25/16 21:51 Last Admin: 12/25/16 22:13 Dose: Not Given Non-Admin Reason: Patient Refused - Scribe Statement The provider has reviewed the documentation as recorded by the Lavern Fletcher Provider Attestation: All medical record entries made by the Scribbety were at my direction and personally dictated by me. I have reviewed the chart and agree that the record accurately reflects my personal performance of the history, physical exam, medical decision making, and the department course for this patient. I have also personally directed, reviewed, and agree with the discharge instructions and disposition. Disposition/Present on Arrival - Present on Arrival Any Indicators Present on Arrival: No History of DVT/PE: No History of Uncontrolled Diabetes: Yes Urinary Catheter: No History of Decub. Ulcer: No History Surgical Site Infection Following: None - Disposition Have Diagnosis and Disposition been Completed?: Yes Diagnosis: Abdominal pain Disposition: HOSPITALIZED Disposition Time: 22:00 Condition: GOOD
[2016-12-25 22:10] LABS: ADD MANUAL DIFF? NO
[2016-12-25 22:15] LABS: BASO # 0.02 K/mm3 (0.0-2.0); BASO % 0.3 % (0.0-3.0); EOS # 0.1 (0.0-0.7); EOS % 0.8 % (1.5-5.0); GRAN # 4.53 (1.4-6.5); GRAN % 69.1 % (50.0-68.0); HEMATOCRIT 35.9 % (36.0-48.0); LYMPH # 1.6 (1.2-3.4); LYMPH % 24.6 % (22.0-35.0); MEAN CELL VOLUME 88.6 fL (80.0-105.0); MEAN CORPUSCULAR HEMOGLOBIN 29.6 pg (25.0-35.0); MEAN CORPUSCULAR HGB CONC 33.4 g/dl (31.0-37.0); MEAN PLATELET VOLUME 9.6 fl (7.0-11.0); MONO # 0.3 (0.1-0.6); MONO % 5.2 % (1.0-6.0); PLATELET COUNT 339 10^3/uL (120.0-450.0); RED CELL DISTRIBUTION WIDTH 12.7 % (11.5-14.5); VENOUS BLOOD GAS BASE EXCESS 2.2 mmol/L (0.0-2.0); VENOUS BLOOD PH 7.39 (7.32-7.43); WHITE BLOOD COUNT 6.6 10^3/ul (4.5-11.0)
[2016-12-25 22:24] LABS: ALB/GLOB RATIO 1.1 (1.1-1.8); ALKALINE PHOSPHATASE 124 U/L (38-133); ALT/SGPT 43 U/L (7-56); AMYLASE 50 U/L (35-125); AST/SGOT 44 U/L (15-39); BILIRUBIN,TOTAL 0.6 mg/dL (0.2-1.3); BLOOD UREA NITROGEN 22 mg/dL (7-21); CALCIUM 9.4 mg/dL (8.4-10.5); CARBON DIOXIDE 28 mmol/L (21-33); CHLORIDE 99 mmol/L (98-107); GFR AFRICAN-AMERICAN 52; LIPASE 40 U/L (23-300); POTASSIUM 4.8 mmol/L (3.6-5.0); SODIUM 137 mmol/L (132-148); TOTAL PROTEIN 7.6 g/dL (5.8-8.3)
[2016-12-25 22:38] LABS: GLUCOSE,RANDOM 416 mg/dL (70-110); TROPONIN I < 0.01 ng/mL
--- NOTE | 2016-12-25 23:39 | CT ---
EXAM: CT Abdomen and Pelvis Without Intravenous Contrast CLINICAL HISTORY: 81 years old, female; Pain; Abdominal pain; Generalized; Additional info: Abd pain TECHNIQUE: Axial computed tomography images of the abdomen and pelvis without intravenous contrast. This CT exam was performed using one or more of the following dose reduction techniques: automated exposure control, adjustment of the mA and/or kV according to patient size, and/or use of iterative reconstruction technique. Coronal and sagittal reformatted images were created and reviewed. COMPARISON: CT - ABD PELVIS W/O PO OR IV CONT 05/19/2016 1:39:01 PM FINDINGS: The unenhanced liver, spleen and adrenal glands demonstrate no acute abnormalities. Pancreatic atrophy. Status post cholecystectomy. No obstructing renal calculus or hydronephrosis. Notable atherosclerosis. Please note evaluation for underlying visceral lesions/abnormalities limited without intravenous contrast. Limited evaluation of the bowel without enteric contrast. Small hiatal hernia. The small and large bowel as visualized demonstrate no evidence of obstruction or clear focus of inflammation. Normal-caliber appendix. Fatty focus in the small bowel in the upper abdomen, axial image 61. No ascites. No free air. Degenerative changes. IMPRESSION: Limited evaluation of the bowel without enteric contrast. Small hiatal hernia. Fatty focus in the small bowel in the upper abdomen, axial image 61. Pancreatic atrophy. Status post cholecystectomy. Notable atherosclerosis. Please note evaluation for underlying visceral lesions/abnormalities limited without intravenous contrast. Correlate clinically. Followup as warranted.
[2016-12-26] MEDS ORDERED: Insulin Regular 1 UNITS/0.01 ML ML SC STA (00:01)
[2016-12-26] MEDS ORDERED: Sodium Chloride 0.9% 1,000 ML IV STA (01:10)
[2016-12-26 01:18] LABS: VENOUS BLOOD GAS BASE EXCESS 2.4 mmol/L (0.0-2.0); VENOUS BLOOD PH 7.42 (7.32-7.43)
[2016-12-26 01:26] LABS: PH,URINE 7.5 (4.7-8.0); URINE BILIRUBIN NEGATIVE (NEGATIVE); URINE BLOOD NEGATIVE (NEGATIVE); URINE GLUCOSE (UA) >=1000 mg/dL (NEGATIVE); URINE KETONE NEGATIVE (NEGATIVE); URINE LEUKOCYTE ESTERASE TRACE Leu/uL (NEGATIVE); URINE PROTEIN NEGATIVE mg/dL (<30 mg/dL); URINE UROBILINOGEN 0.2 E.U./dL (<1 E.U./dL)
[2016-12-26 01:33] LABS: URINE APPEARANCE SLIGHT-CLOUDY (CLEAR); URINE COLOR YELLOW (YELLOW)
[2016-12-26 01:45] LABS: URINE BACTERIA RARE (NEG); URINE EPITHELIAL CELLS 0 - 2 /hpf (0-5); URINE RBC 0 - 2 /hpf (0-2)
[2016-12-26] MEDS: Insulin Reg-LOW-Coverage SC SCH ×2 (08:12→12:14)
--- NOTE | 2016-12-26 11:23 | CARD ---
APPROVED REPORT EKG Measurement Heart [id number] [place] [id number] <Conclusion> Sinus bradycardia Otherwise WNL.
[2016-12-26] MEDS ORDERED: Barium Sulfate Susp 2.1% w/v, 2.0% w/w 450 mL Bottle PO ONE (13:32)
--- NOTE | 2016-12-26 14:36 | US ---
HISTORY: abdominal pain COMPARISON: None. TECHNIQUE: Sonographic evaluation of the abdomen. FINDINGS: LIVER: Measures 16.8 cm. Normal echogenicity of the liver parenchyma. No mass. No intrahepatic bile duct dilatation. GALLBLADDER: Status post cholecystectomy COMMON BILE DUCT: Measures 5 mm. No stones. No dilatation. PANCREAS: Unremarkable as visualized. No mass. No ductal dilatation. RIGHT KIDNEY: Measures 7.5cm. Normal echogenicity. No calculus, mass, or hydronephrosis. LEFT KIDNEY: Measures 9.2cm. Normal echogenicity. Mid to upper pole parapelvic cyst, 1.3 x 1.3 x 1.4 cm. No solid mass. No calculus or hydronephrosis. SPLEEN: Normal in size and contour. No mass. AORTA: No aneurysmal dilatation. IVC: Unremarkable. OTHER FINDINGS: None. IMPRESSION: Status post cholecystectomy. Mildly atrophic right kidney. Small left parapelvic renal cyst. No additional abnormality.
--- NOTE | 2016-12-26 15:38 | HP ---
The patient is an 81-year-old, known to me from previous admissions, states for the last 4 days she i s having some abdominal discomfort. She was having intermittent diarrhea, got worse last night, so s he came to Emergency Room for further evaluation. Denies nausea. States she is hungry now, but rfairebety garcia, feels bloated. No fever or chills. No cough or congestion. No recent travel abroad. PAST MEDICAL HISTORY: Significant for: 1. Hypertension. 2. Hyperlipidemia. 3. Peripheral vascular disease. 4. Coronary artery disease. 5. History of chronic obstructive pulmonary disease. 6. Non-insulin dependent diabetes. 7. Gastritis. PAST SURGICAL HISTORY: Significant for hysterectomy. ALLERGIES: She is not allergic to any medication. SOCIAL HISTORY: She lives with her family. Denies smoking, drinking or alcohol use. MEDICATIONS AT HOME: She is on tramadol, amlodipine 5 mg daily, Zocor 20 mg daily, Protonix 40 daily , metformin 1000 daily, Humalog 10 units before each meal and she is on Lantus 12 units at bedtime an d 20 units at bedtime, carvedilol 3.125 twice a day, Aspirin 325 daily. PHYSICAL EXAMINATION: GENERAL: She is awake and alert, communicative, still complained of feeling bloated. VITAL SIGNS: She is afebrile, pulse 60, respirations 18, blood pressure 158/88. LUNGS: Bilateral good airflow. HEART: S1, S2 audible. ABDOMEN: Soft, but bloated. She does have bowel sounds. NEUROLOGIC: She is awake and alert, communicative. LABORATORY EXAMINATION: WBCs 6.6, hemoglobin 12, hematocrit 35.9, platelets of 339. PT 10.8, INR 1. 0. Chemistry: Sodium 137, potassium 4.8, chloride 99, CO2 28, BUN 22, creatinine 1.2, blood sugar o f 416, AST 44, ALT 43. Urinalysis is unremarkable. CT scan of the abdomen and pelvis done in the ER without contrast shows limited evaluation of the bow el without enteric contrast, small hiatal hernia, status post cholecystectomy. ASSESSMENT: 1. Abdominal pain, etiology still unclear. She definitely has abdominal distention. 2. Status post hysterectomy. 3. Hypertension. 4. Insulin-dependent diabetes. PLAN: The patient is currently on liquid diet. I will continue her on carvedilol. We will monitor. I will hold off on metformin, start her on Protonix and analgesic as needed. Dr. Torres has been consulted. I will give her a dose of Dulcolax suppository to see the response. If no improvement, we need to repeat CT of the abdomen and pelvis with p.o. contrast. Surekha Boone MD cc: [phone] TT: 12/26/2016 15:23:01 en
[2016-12-26] MEDS: Insulin Reg-HIGH-Coverage SC SCH ×2 (17:12→23:24)
--- NOTE | 2016-12-26 17:15 | CON ---
DATE: 12/26/2016 GASTROINTESTINAL CONSULTATION Seen at the bedside earlier this afternoon. REQUEST FOR CONSULT: For abdominal pain, distention, and bloating. HISTORY OF PRESENT ILLNESS: This is an 81-year-old female with a past medical history of hypertensio n, peripheral vascular disease, and hyperlipidemia. The patient is [place] speaking and development engineer was obtained from the floor, who is a nurse. The patient came to the Emergency Room with complaint o f diffuse abdominal pain that started on Thursday. She complained that her abdomen felt swollen. She did not have any nausea, vomiting, or diarrhea. Denies any fever or chills. The patient denies any nausea or vomiting. She did complain of diarrhea the past 2 days. No reports of any hemetemesis or any melena or bright red blood per rectum. Denies any dysuria or any difficulty breathing. She did have a CAT scan of abdomen and pelvis on admission with no contrast and that was a limited study wit hout contrast. It did show a hiatal hernia and fatty focus in the small bowel. No acute findings. The patient states that she may have had an endoscopy many years ago with a history of peptic ulcer d isease, but no colonoscopy. PAST MEDICAL HISTORY: As stated above, hypertension, hyperlipidemia, peripheral vascular disease, pe ptic ulcer disease, diabetes mellitus, GERD. PAST SURGICAL HISTORY: She had cataract surgery. She had a hysterectomy. SOCIAL HISTORY: Denies smoking, ETOH, or substance abuse. FAMILY HISTORY: Denies. ALLERGIES: No known drug allergies. MEDICATIONS: Reviewed as per MAR. REVIEW OF SYSTEMS: Systems were reviewed. For positive findings, see HPI. VITAL SIGNS: Temperature is 98.4, blood pressure is 158/88, pulse 68, respirations 18, 97 on room ai r. LABORATORIES: Sodium 137, potassium 4.8, BUN 22, creatinine is 1.2. LFTs are within normal limits. Her WBC 6.6, H and H are 12.0 and 35.9, platelets are 339. PT is 10.8, INR is 1.00, PTT is 24.0. U rine: There is a trace of leukoesterase, negative protein, no ketones. PHYSICAL EXAMINATION: HEENT: Sclerae are anicteric. NECK: Supple. CARDIAC: S1, S2. LUNGS: With decreased breath sounds, but good air entry, no rales or wheeze. ABDOMEN: With bowel sounds, soft, does appear distended, with some vonnie mid umbilical tenderness. N o rebound, guarding, or organomegaly. ASSESSMENT: This is an 81-year-old female who has a past medical history of diabetes mellitus, hyper tension, hyperlipidemia, comes to the Emergency Room with complaints of diffuse abdominal pain, bloat ing, and complaint of diarrhea. Abdominal pain is mostly in the mid abdomen. CT scan did not report any acute findings. We sent her for an abdominal ultrasound, which ruled out any gallbladder pathol ogy. That was negative. It looks like the patient has a history of a cholecystectomy. PLAN: The patient will repeat the CT scan of abdomen and pelvis with oral contrast. Continue the li quid diet. The patient is on Protonix daily, and we will review. Thank you for this consult and for allowing us to participate in your patient's care. Will make furt her recommendation based upon patient's clinical course. The patient was seen and case discussed gloria Torres. Rosana ABRAMS cc: [id number] TT: 12/26/2016 17:14:15 Confirmation # [id number] Dictation # [id number] [email or web address]
--- NOTE | 2016-12-26 18:17 | CT ---
PROCEDURE: CT Abdomen and Pelvis without IV contrast. HISTORY: abdominal distension COMPARISON: Abdominal ultrasound performed earlier the same day. CT abdomen and pelvis without oral or IV contrast performed 12/25/16 TECHNIQUE: Contiguous axial images of the abdomen and pelvis. Oral contrast was administered. No IV contrast given. Coronal and Sagittal reformats generated and reviewed. Radiation dose: Total exam DLP = 362.57 mGy-cm. This CT exam was performed using one or more of the following dose reduction techniques: Automated exposure control, adjustment of the mA and/or kV according to patient size, and/or use of iterative reconstruction technique. FINDINGS: There is limited evaluation of the solid organs without the administration of IV contrast. LOWER THORAX: Bibasilar atelectasis. No visible pleural effusion or pneumothorax. Small to moderate hiatal hernia and distal esophageal wall thickening. LIVER: Pancreatic atrophy. GALLBLADDER AND BILE DUCTS: Cholecystectomy. PANCREAS: Unremarkable unenhanced appearance of the adrenal glands. 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 5 mm probable splenule. Otherwise unremarkable unenhanced appearance of the spleen. ADRENALS: Unremarkable unenhanced appearance. KIDNEYS AND URETERS: No hydronephrosis or obstructing renal calculus. 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 Too small to characterize 6 mm lateral right upper pole renal hypodensity. BLADDER: Under distention of the urinary bladder limits evaluation. REPRODUCTIVE: Uterus is absent compatible with hysterectomy. APPENDIX: The appendix appears within normal limits of caliber. No secondary signs of acute appendicitis. BOWEL: The stomach is nondistended. The bowel loops appear within normal limits of caliber without evidence of intestinal obstruction. Previously demonstrated fatty focus with me small bowels not appreciated on today's examination. Circumferential thickening of the rectosigmoid colon can be seen in setting of chronic diverticulosis. Clinical correlation is recommended to exclude colitis (I.e. infectious, inflammatory, ischemic). PERITONEUM: No significant free fluid. No definite free air. LYMPH NODES: Sub cm mesenteric, retroperitoneal, and bilateral inguinal lymph nodes, nonspecific. VASCULATURE: Atherosclerotic calcifications. No aortic aneurysm. BONES: Osseous demineralization. Degenerative changes. OTHER FINDINGS: None. IMPRESSION: Circumferential thickening of the rectosigmoid colon can be seen in setting of chronic diverticulosis. Clinical correlation is recommended to exclude colitis (I.e. infectious, inflammatory, ischemic). 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 Too small to characterize 6 mm lateral right upper pole renal hypodensity. 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 Hysterectomy. Cholecystectomy. Pancreatic atrophy. Small to moderate hiatal hernia distal esophageal wall thickening. Bibasilar atelectasis.
[2016-12-26] MEDS: metroNIDAZOLE IV 250mg/50 ml 50 ML IV SCH (23:25)
[2016-12-27] MEDS: Insulin Reg-HIGH-Coverage SC SCH ×4 (08:00→21:26)
[2016-12-27 08:06] LABS: FREE T4 1.02 ng/dL (0.78-2.19)
[2016-12-27 08:09] LABS: ALB/GLOB RATIO 1.1 (1.1-1.8); ALKALINE PHOSPHATASE 100 U/L (38-133); ALT/SGPT 37 U/L (7-56); AMYLASE 55 U/L (35-125); AST/SGOT 46 U/L (15-39); BILIRUBIN,TOTAL 0.5 mg/dL (0.2-1.3); BLOOD UREA NITROGEN 10 mg/dL (7-21); CALCIUM 8.5 mg/dL (8.4-10.5); CARBON DIOXIDE 25 mmol/L (21-33); CHLORIDE 110 mmol/L (95-110); GFR AFRICAN-AMERICAN > 60; GLUCOSE,RANDOM 86 mg/dL (70-110); MAGNESIUM 1.6 mg/dL (1.7-2.2); POTASSIUM 3.4 mmol/L (3.6-5.0); SODIUM 144 mmol/L (132-148); TOTAL PROTEIN 6.4 g/dL (5.8-8.3)
[2016-12-27 08:20] LABS: THYROID STIMULATING HORMONE 1.48 mIU/mL (0.46-4.68)
[2016-12-27] MEDS: Aspirin 325 mg EC Tablets PO SCH (10:24)
[2016-12-27] MEDS: cefTRIAXone 1 gm 100 ML IVPB SCH (10:25)
[2016-12-27] MEDS: Potassium Chloride 10 mEq 100 ML IVPB SCH ×2 (11:58→14:20)
[2016-12-27] MEDS: metroNIDAZOLE IV 250mg/50 ml 50 ML IV SCH ×3 (14:20→21:27)
--- NOTE | 2016-12-27 16:05 | CON ---
DATE: 12/26/2016 ADDENDUM This is an addendum to the GI consultation report dictated by Rosana Padilla NP. The patient was seen and evaluated at 6:00 p.m. on 12/26/2016. This 81-year-old patient was admitted with abdominal distention and cramping abdominal discomfort, episodes of loose bowel movements. No v omiting. On examination has softly distended abdomen with diffuse mild tenderness present. There is no rebound or guarding. The previous CT scan was reviewed. The plan is to have the repeat CT with oral contrast reviewed. The patient is clinically more suggestive of enterocolitis. Stool culture w as requested. We will consider starting the patient empirically on antibiotics. Thank you very much for allowing us to participate in the care of the patient. Luisito Torres MD cc: [id number] TT: 12/27/2016 16:05:09 Confirmation # [id number] Dictation # [id number] kalen
--- NOTE | 2016-12-27 16:13 | PN ---
DATE: 12/27/2016 SUBJECTIVE: This patient was seen at 11:30 a.m. The patient's family was at bedside. The patient is feeling slightly better. PHYSICAL EXAMINATION: VITAL SIGNS: Temperature is 98.4, pulse 63, blood pressure 126/64. HEENT: Atraumatic, anicteric. NECK: Supple. HEART: S1, S2 heard. LUNGS: Bilateral normal vesicular breath sounds. ABDOMEN: Soft. There is no mass palpable. There is a mild tenderness present, especially in the lo wer abdomen. There is no rebound or guarding. EXTREMITIES: No edema, no cyanosis. LABORATORY DATA: Hemoglobin 12, hematocrit 35.9, WBC 6.6, platelets 339, BUN 10, creatinine 1.0. e CT scan was reviewed. Reported thickening of the rectosigmoid area. There is also suspected a sma ll splenic artery aneurysm, some thickening of the hiatus hernia, with thickening of the distal esoph ageal area. The patient also noticed to have a small renal calculus. IMPRESSION: 1. Colitis, rule out inflammatory ischemic, rule out neoplasia. 2. Renal calculus. 3. 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 The patient has a history of status post . Will continue the antibiotics. The patient would benefit from upper GI endoscopy and also colonoscop y to further evaluate. The CAT scan also revealed a thickening of the distal esophagus and hiatus he rnia. It is reasonable to consider endoscopy at the same time. The family was at bedside and was ex plained about that. Thank you very much for allowing us to participate in the care of the patient. Luisito Torres MD cc: [id number] TT: 12/27/2016 16:12:52 Confirmation # [id number] Dictation # [id number] kalen
--- NOTE | 2016-12-27 18:35 | PN ---
DATE: 12/27/2016 The patient is an 81-year-old, seen and examined, sitting in chair. States she feels a little better . No nausea or vomiting, diarrhea. PHYSICAL EXAMINATION: VITAL SIGNS: She is afebrile, pulse 59, respirations 20, blood pressure 144/72. LUNGS: Bilateral fair airflow, no rhonchi or crackle. HEART: S1, S2 audible. ABDOMEN: Soft, nontender, no rebound, no guarding. Epigastric discomfort and bloating has improved as compared to yesterday. EXTREMITIES: Bilateral legs, no edema. LABORATORY: Sodium 144, potassium 3.4, chloride 110, CO2 of 25, BUN 10, creatinine 1.0, magnesium 1. 6. Urine culture positive for gram-negative rods. CT scan of the abdomen and pelvis done yesterday s hows stomach is nondistended; however, circumferential thickening of the rectosigmoid colon. Could b e chronic diverticulosis versus infectious and inflammatory process. There is an 11 mm fat density n odule in the medial aspect of the left upper lobe, probably a new lipoma. PLAN: Discussed with Dr. Torres. The patient has been started on IV antibiotic. Will continue he r on Coreg, continue her on clear liquid. stool for C. diff. We will follow up her electrolyt es in the a.m. Surekha Boone MD cc: [phone] TT: 12/27/2016 18:34:52 Confirmation # [id number] Dictation # [id number] kalen
[2016-12-27] MEDS: Pantoprazole 40 mg EC Tab PO SCH (19:03)
[2016-12-27 20:11] LABS: CHOLESTEROL 124 mg/dL (130-200)
[2016-12-28] MEDS: metroNIDAZOLE IV 250mg/50 ml 50 ML IV SCH ×3 (05:18→21:37)
[2016-12-28] MEDS: Pantoprazole 40 mg EC Tab PO SCH (06:49)
[2016-12-28 07:49] LABS: ALKALINE PHOSPHATASE 92 U/L (38-133); ALT/SGPT 40 U/L (7-56); AST/SGOT 41 U/L (15-39); BILIRUBIN,TOTAL 0.5 mg/dL (0.2-1.3); BLOOD UREA NITROGEN 7 mg/dL (7-21); CALCIUM 8.3 mg/dL (8.4-10.5); CARBON DIOXIDE 23 mmol/L (21-33); CHLORIDE 111 mmol/L (98-107); GFR AFRICAN-AMERICAN > 60; GLUCOSE,RANDOM 139 mg/dL (70-110); MAGNESIUM 1.8 mg/dL (1.7-2.2); POTASSIUM 3.8 mmol/L (3.6-5.0); SODIUM 142 mmol/L (132-148); TOTAL PROTEIN 6.2 g/dL (5.8-8.3)
[2016-12-28] MEDS: Insulin Reg-HIGH-Coverage SC SCH ×4 (08:00→22:00)
[2016-12-28] MEDS: cefTRIAXone 1 gm 100 ML IVPB SCH (10:58)
[2016-12-28] MEDS: Aspirin 325 mg EC Tablets PO SCH (10:59)
--- NOTE | 2016-12-28 11:40 | PN ---
DATE: 12/28/2016 The patient is 81 years old seen and examined. She states she feels a little better, still has diarr hea. PHYSICAL EXAMINATION: VITAL SIGNS: She is afebrile, pulse 67, respirations 20, blood pressure 119/54. LUNGS: Bilateral fair airflow. No rhonchi or crackle. HEART: S1, S2 audible. ABDOMEN: Soft, nontender. No rebound, no guarding. NEUROLOGIC: She is awake and alert, communicative, ambulatory. EXTREMITIES: Bilateral legs, no edema. LABORATORY EXAMINATION: Sodium 142, potassium 3.8, chloride 111, CO2 of 28, BUN 7, creatinine 0.9, b lood sugar 138. Urine is positive for gram-negative rods. ASSESSMENT: 1. Rectosigmoid thickening, probably colitis. 2. Hypertension. 3. Hyperlipidemia. 4. History of coronary artery disease. 5. Chronic obstructive pulmonary disease. 6. Non-insulin dependent diabetes. PLAN: Currently, the patient is on ____, Coreg, Protonix. Her electrolytes are being monitored. Kanwal albert is on IV Flagyl and Rocephin. Will keep her on clear liquid. Order stool for Hemoccult since she is stating her stools are black. Discussed with Dr. Torres. Eventually, she is going to need col onoscopy. Surekha Boone MD cc: [phone] TT: 12/28/2016 11:39:35 Confirmation # [id number] Dictation # [id number] tian
[2016-12-28 16:18] VITALS: RESP 18
[2016-12-29] MEDS: metroNIDAZOLE IV 250mg/50 ml 50 ML IV SCH ×2 (05:10→14:12)
[2016-12-29] MEDS: Pantoprazole 40 mg EC Tab PO SCH (07:57)
--- NOTE | 2016-12-29 08:27 | PN ---
DATE: 12/28/2016 ADDENDUM This is an addendum to the GI progress report dictated by Rosana Padilla NP. This patient was seen and evaluated earlier. Discussed with the patient's daughter who was at bedside. The patient is tolera ting the diet. She mentioned earlier that she had a dark stool before. The patient is on ceftriaxon e and Flagyl. Overall, she feels her abdominal discomfort is much better than when she came in. PHYSICAL EXAMINATION: VITAL SIGNS: Temperature is afebrile, blood pressure 119/54, respirations 22, pulse 67. HEENT: Atraumatic, anicteric. NECK: Supple. HEART: S1, S2 heard. LUNGS: Bilateral normal vesicular breath sounds. ABDOMEN: Soft. There was tenderness in the lower abdomen. IMPRESSION: This 81-year-old patient admitted with abdominal distention and pain. CAT scan sh owed thickening in the rectosigmoid area, diverticulosis, rule out colitis diverticulitis, isch emia. PLAN: Continue the antibiotics and liquid diet. Urine culture grew negative less than 10,000 rods. History of some dark stool. We will follow up the hemoglobin. The CT also shows some thickening of the distal esophageal area; would need an upper GI endoscopy. Continue the PPI. Thank you very much for allowing us to participate in the care of the patient. Case is discussed wit aparna Boone earlier today. Luisito Torres MD cc: [id number] TT: 12/28/2016 19:58:46 Confirmation # [id number] Dictation # [id number] mn
[2016-12-29] MEDS: Insulin Reg-HIGH-Coverage SC SCH ×3 (08:57→17:25)
[2016-12-29 09:33] LABS: ADD MANUAL DIFF? NO
[2016-12-29 09:53] LABS: BASO # 0.01 K/mm3 (0.0-2.0); BASO % 0.2 % (0.0-3.0); EOS # 0.2 (0.0-0.7); EOS % 2.4 % (1.5-5.0); GRAN # 3.87 (1.4-6.5); GRAN % 58.1 % (50.0-68.0); HEMATOCRIT 34.4 % (36.0-48.0); LYMPH # 2.2 (1.2-3.4); MEAN CELL VOLUME 88.2 fL (80.0-105.0); MEAN PLATELET VOLUME 9.5 fl (7.0-11.0); MONO # 0.4 (0.1-0.6); MONO % 6.3 % (1.0-6.0); PLATELET COUNT 286 10^3/uL (120.0-450.0); WHITE BLOOD COUNT 6.7 10^3/ul (4.5-11.0)
[2016-12-29] MEDS: Aspirin 325 mg EC Tablets PO SCH (10:27)
[2016-12-29] MEDS: cefTRIAXone 1 gm 100 ML IVPB SCH (10:32)
[2016-12-29 15:46] VITALS: BP 142/65; PULSE 60; TEMP 98.2; O2SAT 99
--- NOTE | 2016-12-29 17:42 | DS ---
HISTORY OF PRESENT ILLNESS: The patient is an 81-year-old seen and examined, sitting in chair. She s tates she feels a lot better. No nausea, vomiting. Eating and tolerating. She had episode of black stool day before yesterday. After that, it has cleared up. PHYSICAL EXAMINATION: VITAL SIGNS: She is afebrile, pulse 69, respirations 18, blood pressure 169/71. LUNGS: Bilateral fair airflow, no rhonchi or crackle. HEART: S1, S2 audible. ABDOMEN: Soft, nontender, no rebound, no guarding. NEUROLOGIC: She is awake and alert, communicative. LABORATORY EXAM: WBC 6.7, hemoglobin 11.7, hematocrit 34.4, platelet 286. Chemistry: Sodium 142, p otassium 3.8, chloride 111, CO2 28, BUN 7, creatinine 0.9, blood sugar 139. Stool for Hemoccult is n egative, so there are no signs of active bleeding. ASSESSMENT AND PLAN: 1. Abdominal pain. 2. Rectosigmoid colitis. 3. Hypertension. 4. History of coronary artery disease. 5. History of chronic obstructive pulmonary disease, but stable. 6. Non-insulin dependent diabetes. PLAN: The patient will be discharged home on p.o. antibiotic. She will resume all her medication as prior to admission, including Coreg, amlodipine, Protonix and I will give her a prescription of Flag yl and Cipro. The patient's son, who was at the bedside, stated that she had a colonoscopy done almo st a month and they were told that is negative. I explained to patient's son, emphasized that she thao uld follow with her GI after she finished course of antibiotic for further management. Surekha Boone MD cc: [phone] TT: 12/29/2016 17:42:45 ln
--- NOTE | 2016-12-29 18:22 | PN ---
DATE: 12/29/2016 SUBJECTIVE: This patient was seen and evaluated earlier and the patient's son was at bedside. The p atient is tolerating the solid food. PHYSICAL EXAMINATION: VITAL SIGNS: Temperature is 98.2, blood pressure 142/65, pulse 60. HEENT: Atraumatic, anicteric. NECK: Supple. HEART: S1, S2 heard. LUNGS: Bilateral normal vesicular breath sounds. ABDOMEN: Soft. There is some mild tenderness present in the left lower quadrant area. There is no rebound or guarding. EXTREMITIES: No edema. No cyanosis. LABORATORY DATA: Hemoglobin 11.7, hematocrit 34.4, WBC 6.7, platelets 286, BUN 7, creatinine 0.9. IMPRESSION: This 81-year-old patient admitted with abdominal pain and distention. CT repeat with or al contrast showed inflammatory changes in the colon, focal. On IV antibiotics, was clinically impro ving. The patient also has some thickening and hiatus hernia with some thickening of the distal esop hageal wall. Clearly, this patient would need a colonoscopy and endoscopic evaluation, which can be considered as an outpatient. The patient is planned to be discharged today, advised to complete anti biotic course and continue the PPI. Would need an elective EGD done and colonoscopy in 4-6 weeks' ti me to evaluate the focally thickened inflammatory area in the left colon. The patient would benefit from initially low residue diet with stool softeners. The patient may be considered for high fiber d iet later. Initially, diet should be low residue diet with stool softeners. This was explained to t he patient and the patient's family was at bedside and advised to come to the ER if any further worse joaquina of the symptoms. Luisito Torres MD cc: [id number] TT: 12/29/2016 18:21:08 Confirmation # [id number] Dictation # [id number] [email or web address]
== END 2016-12-29 19:59 | disposition home or self-care (01) | DRG 392 ==
LOC: ED 21:25 → ERH 12-26 00:37 → 5RNO 12-26 03:36 → OBSVTOIN 12-26 18:32
PROVIDERS: ADMIT Internal Medicine; ATTEND Internal Medicine
DX: K52.9 Noninfective gastroenteritis and colitis, unspecified (principal); K55.9 Vascular disorder of intestine, unspecified; I72.8 Aneurysm of other specified arteries; R00.1 Bradycardia, unspecified; J44.9 Chronic obstructive pulmonary disease, unspecified; K57.92 Diverticulitis of intestine, part unspecified, without perforation or abscess without bleeding; R10.9 Unspecified abdominal pain; K44.9 Diaphragmatic hernia without obstruction or gangrene; E11.9 Type 2 diabetes mellitus without complications; K86.89 Other specified diseases of pancreas; I73.9 Peripheral vascular disease, unspecified; Z90.49 Acquired absence of other specified parts of digestive tract; I25.10 Atherosclerotic heart disease of native coronary artery without angina pectoris; E78.5 Hyperlipidemia, unspecified; I10 Essential (primary) hypertension; K21.9 Gastro-esophageal reflux disease without esophagitis; K57.90 Diverticulosis of intestine, part unspecified, without perforation or abscess without bleeding; N20.0 Calculus of kidney; Z79.4 Long term (current) use of insulin; Z79.82 Long term (current) use of aspirin; Z87.11 Personal history of peptic ulcer disease; Z90.710 Acquired absence of both cervix and uterus; Z98.42 Cataract extraction status, left eye; Z98.41 Cataract extraction status, right eye; R40.2412 Glasgow coma scale score 13-15, at arrival to emergency department; K29.70 Gastritis, unspecified, without bleeding; D17.4 Benign lipomatous neoplasm of intrathoracic organs

== ENCOUNTER 2018-12-11 14:12 | Emergency (ER) | payer MEDICARE, MEDICAID ==
[2018-12-11 14:14] VITALS: BMI 25.4
[2018-12-11 14:28] VITALS: RESP 18; TEMP 98
[2018-12-11] MEDS ORDERED: Promethazine/Cod 6.25mg-10mg/5ml Syr UD PO STA (14:42)
--- NOTE | 2018-12-11 14:57 | ED PDOC ---
Arrival/HPI - General Chief Complaint: Cough, Cold, Congestion Time Seen by Provider: 12/11/18 14:29 Historian: Patient, Family - History of Present Illness Narrative History of Present Illness (Text): 12/11/18 14:54 83 yo female h/o DM, COPD, CAD presents to the ED c/o left sided throat irritation and discomfort x 2 weeks. She says the symptoms are worse at night and sometimes a choking sensation. No ear pain. No nasal congestion or runny nose. No fever, chills or bodyaches. No chest pain or shortness of breathe. No throat swelling or rash. PMD: Dr. Bob Past Medical History - Provider Review Nursing Documentation Reviewed: Yes - Infectious Disease Hx of Infectious Diseases: None - Tetanus Immunization Tetanus Immunization: Unknown - Cardiac Hx Hypertension: Yes - Pulmonary Hx Respiratory Disorders: No Hx Chronic Obstructive Pulmonary Disease (COPD): No - Neurological Hx Transient Ischemic Attacks (TIA): No - HEENT Hx HEENT Disorder: Yes Hx Blind: No Hx Cataracts: Yes (Bilateral cataract removal) Hx Deafness: No Hx Difficulty Chewing: No Hx Epistaxis: No Hx Glaucoma: No Hx Macular Degeneration: No - Renal Hx Renal Disorder: No Hx Renal Failure: No - Endocrine/Metabolic Hx Diabetes Mellitus Type 1: No Hx Diabetes Mellitus Type 2: Yes - Hematological/Oncological Hx Blood Disorders: No Hx AIDS: No Hx Anemia: No Hx Cancer: No Hx Chemotherapy: No Hx Cirrhosis: No Hx Hemophilia: No Hx Hepatitis A: No Hx Hepatitis B: No Hx Hepatitis C: No Hx Metastasis: No Hx Shingles: No Hx Sickle Cell Disease: No Hx Unexplained Bleeding: No - Integumentary Hx Dermatological Disorder: No Hx Basal Cell Carcinoma: No Hx Eczema: No Hx Melanoma: No Hx Psoriasis: No Hx Squamous Cell Carcinoma: No - Musculoskeletal/Rheumatological Hx Falls: No - Gastrointestinal Hx Gastrointestinal Disorders: Yes Hx Colostomy: No Hx Crohn's Disease: No Hx Diverticulitis: No Hx Gall Bladder Disease: No Hx Gastroesophageal Reflux: Yes Hx Gastrointestinal Ulcer: No Hx Ileostomy: No Hx Liver Failure: No Hx Pancreatitis: No HX Swallowing Problems: No - Genitourinary/Gynecological Hx Genitourinary Disorders: Yes (hysterectomy) Hx Hematuria: No Hx Incontinence: No Hx Prostate Problems: No Hx Sexually Transmitted Diseases: No Hx Urinary Tract Infection: No - Psychiatric Hx Psychophysiologic Disorder: No Hx Anxiety: No Hx Bipolar Disorder: No Hx Depression: No Hx Emotional Abuse: No Hx Hallucinations: No Hx Panic Disorder: No Hx Post Traumatic Stress Disorder: No Hx Psychosis: No Hx Physical Abuse: No Hx Schizophrenia: No Hx Sexual Abuse: No Hx Substance Use: No - Surgical History Hx Amputation: No Hx Appendectomy: No Hx Cardiac Catheterization: No Hx Cholecystectomy: No Hx Coronary Stent: No Hx Gastric Bypass Surgery: No Hx Hysterectomy: Yes Hx Joint Replacement: No Hx Kidney Transplant: No Hx Liver Transplant: No Hx Mastectomy: No Hx Musculoskeletal Surgery: Yes Hx Open Heart Surgery: No Hx Orthopedic Surgery: Yes Hx Splenectomy: No Hx Valve Replacement: No Other/Comment: Stents - Anesthesia Hx Anesthesia: Yes Hx Anesthesia Reactions: No Hx Malignant Hyperthermia: No - Suicidal Assessment Feels Threatened In Home Enviroment: No Family/Social History - Physician Review Nursing Documentation Reviewed: Yes Family/Social History: Unknown Family HX Smoking Status: Never Smoked Hx Alcohol Use: No Hx Substance Use: No Hx Substance Use Treatment: No Allergies/Home Meds Allergies/Adverse Reactions: Allergies No Known Allergies Allergy (Verified 12/11/18 14:28) Home Medications: Home Meds Medication Instructions Recorded Confirmed Insulin Glargine, Recombina 20 units SC ACB 09/30/13 12/11/18 [Lantus] Insulin Lispro [humALOG] 12 units SC BID 09/30/13 12/11/18 Aspirin [Ecotrin] 325 mg PO DAILY 12/18/16 12/11/18 Simvastatin [Zocor] 20 mg PO DAILY 12/18/16 12/11/18 amLODIPine [Norvasc] 5 mg PO DAILY 12/18/16 12/11/18 Gabapentin [Neurontin] 100 mg PO DAILY 12/11/18 12/11/18 Review of Systems - Review of Systems Constitutional: Normal Eyes: Normal ENT: Sore Throat. absent: Hearing Changes, Tinnitus, TMJ Pain, Voice Changes, Rhinorrhea, Sinus Congestion Respiratory: Normal. absent: Cough Cardiovascular: Normal Gastrointestinal: Normal Genitourinary Female: Normal Musculoskeletal: Normal Skin: Normal Neurological: Dizziness (this is chronic and intermittent but she's not complaining of this now). absent: Headache, Focal Weakness, Gait Changes, Speech Changes, Facial Droop, Disequilibrium, Seizure Endocrine: Normal Hemo/Lymphatic: Normal Psychiatric: Normal Physical Exam Vital Signs Reviewed: Yes Vital Signs Temp Pulse Resp BP Pulse Ox 12/11/18 14:26 98 F 68 18 170/67 H 97 Temperature: Afebrile Blood Pressure: Hypertensive Pulse: Regular Respiratory Rate: Normal Appearance: Positive for: Well-Appearing, Non-Toxic, Comfortable Pain Distress: None Mental Status: Positive for: Alert and Oriented X 3 Finger Stick Blood Glucose: 164 - Systems Exam Head: Present: Atraumatic, Normocephalic Pupils: Present: PERRL Extroacular Muscles: Present: EOMI Conjunctiva: Present: Normal Mouth: Present: Moist Mucous Membranes Pharnyx: Present: Normal. No: ERYTHEMA, EXUDATE, TONSILS ENLARGED, Peritonsilar Swelling, Uvular Deviation, Muffled/Hoarse Voice, Strider, Soft Palate/Uvular Edema Nose (Internal): Present: Normal Inspection Neck: Present: Normal Range of Motion, Other (no throat tenderness) Respiratory/Chest: Present: Clear to Auscultation, Good Air Exchange. No: Respiratory Distress, Accessory Muscle Use Cardiovascular: Present: Regular Rate and Rhythm, Normal S1, S2. No: Murmurs Abdomen: No: Tenderness, Distention, Peritoneal Signs Back: Present: Normal Inspection Upper Extremity: Present: Normal Inspection. No: Cyanosis, Edema Lower Extremity: Present: Normal Inspection. No: Edema Neurological: Present: GCS=15, CN II-XII Intact, Speech Normal Skin: Present: Warm, Dry, Normal Color. No: Rashes Psychiatric: Present: Alert, Oriented x 3, Normal Insight, Normal Concentration Medical Decision Making ED Course and Treatment: 12/11/18 14:58 83 yo female with left sided throat discomfort most likely allergies vs viral in fection -- phenergen with codeine -- xray 12/11/18 15:08 EKG reviewed, shows: NSR at 62 bpm, No ST elevation. 12/11/18 15:28 Accession No. : [id number] Creator : Shelton Ivey MD PROCEDURE: Soft tissue neck IMPRESSION: Negative study 12/11/18 15:43 Patient feels better. She says symptoms almost completely improved. She denies any chocking sensation or trouble breathing. She has good PMD f/u and good support from her daughter. She will make sure to f/u on her scheduled appt early december and will try to go earlier. She will return to the ED if symptoms worsen or any other concern. - RAD Interpretation Radiology Orders: 12/11/18 14:40 NECK SOFT TISSUE [RAD] Stat - Medication Orders Current Medication Orders: Discontinued Medications Promethazine HCl/Codeine (Phenergan/Codeine Oral Syrup) 5 ml PO STAT STA Stop: 12/11/18 14:43 - Scribe Statement The provider has reviewed the documentation as recorded by the Mansiibbety Jj All medical record entries made by the Scribe were at my direction and personally dictated by me. I have reviewed the chart and agree that the record accurately reflects my personal performance of the history, physical exam, medical decision making, and the department course for this patient. I have also personally directed, reviewed, and agree with the discharge instructions and disposition. Disposition/Present on Arrival - Present on Arrival Any Indicators Present on Arrival: Yes History of DVT/PE: No History of Uncontrolled Diabetes: Yes Urinary Catheter: No History of Decub. Ulcer: No History Surgical Site Infection Following: None - Disposition Have Diagnosis and Disposition been Completed?: Yes Diagnosis: Pharyngitis, acute Disposition: HOME/ ROUTINE Disposition Time: 15:29 Patient Plan: Discharge Patient Problems: Current Active Problems Problem Status Onset Pharyngitis, acute Acute Condition: IMPROVED Discharge Instructions (ExitCare): Sore Throat in Adults Additional Instructions: JASON WALTER, thank you for letting us take care of you today. Your provider was Timothy Salazar DO and you were treated for Pharyngitis. The emergency medical care you received today was directed at your acute symptoms. If you were prescribed any medication, please fill it and take as directed. It may take several days for your symptoms to resolve. Return to the Emergency Department if your symptoms worsen, do not improve, or if you have any other problems. Please contact your doctor or call one of the physicians/clinics you have been referred to that are listed on the Patient Visit Information form that is included in your discharge packet. Bring any paperwork you were given at discharge with you along with any medications you are taking to your follow up visit. Our treatment cannot replace ongoing medical care by a primary care provider outside of the emergency department. Thank you for allowing the [facility] team to be part of your care today. If you had an X-Ray or CT scan: A Radiologist will review the ED reading if any change in treatment is needed we will contact you. If you had a blood, urine, or wound culture: It will take several days for the results, if any change in treatment is needed we will contact you. If you had an STI test: It will take 48 hours for the results. Please call after 1 week if you have not heard back. Prescriptions: Ibuprofen [Motrin] 600 mg PO Q6 PRN #30 tab PRN Reason: Pain, Moderate (4-7) Promethazine/Codeine [Phenergan/Codeine Oral Syrup] 5 ml PO Q6 PRN #1 PRN Reason: Cough Referrals: Hilda Bob DO [Family Provider] - Follow up with primary Forms: [employer] (Croatian), [employer] (Albanian)
--- NOTE | 2018-12-11 15:22 | RAD ---
Date of service: 12/11/2018 PROCEDURE: Soft tissue neck HISTORY: left neck discomfort COMPARISON: TECHNIQUE: Two views FINDINGS: There is no epiglottic swelling or retropharyngeal swelling. There is no foreign body. IMPRESSION: Negative study
[2018-12-11 16:07] VITALS: BP 148/81; PULSE 60; O2SAT 100
--- NOTE | 2018-12-12 17:45 | CARD ---
APPROVED REPORT Date of service: 12/11/2018 EKG Measurement Heart [id number] <Conclusion> Normal sinus rhythm Normal ECG
== END 2018-12-11 16:05 | disposition home or self-care (01) ==
LOC: ED 14:12
DX: J02.9 Acute pharyngitis, unspecified (principal); I10 Essential (primary) hypertension; E11.9 Type 2 diabetes mellitus without complications